=== PATIENT | female | born 1985 | race Caucasian/White ===

== ENCOUNTER → 2017-05-09 | Outpatient (CLI) | payer BC ==
--- NOTE | 2017-05-09 15:28 | DIAGNOSTIC IMAGING REPORT ---
PELVIS 1 OR 2 VIEW ROUTINE CLINICAL HISTORY: 31 years-old Female presenting with benign hypermobility syndrome, patellofemoral disorder, knee pain, polyarthralgia. TECHNIQUE: Single frontal view of the pelvis was obtained. COMPARISON: None. FINDINGS: Hip and sacroiliac joints congruent. No significant degenerative change. No diastases of the pubic symphysis. No acute fracture or malalignment. Nonobstructive bowel gas pattern. IMPRESSION: Normal pelvic radiograph. Electronically signed by: Lucho Ferris M.D. 05/09/2017 3:27 PM Dictated Date/Time: 05/09/2017 3:26 PM
--- NOTE | 2017-05-09 15:30 | DIAGNOSTIC IMAGING REPORT ---
LEFT HAND MIN 3 VIEWS ROUTINE CLINICAL HISTORY: 31 years-old Female presenting with benign hypermobility syndrome, patellofemoral disorder, knee pain, polyarthralgia. TECHNIQUE: Frontal, oblique, and lateral views of the left hand were obtained. COMPARISON: None. FINDINGS: Radiocarpal and intercarpal articulations congruent. No acute fracture or malalignment. No radiopaque foreign body. No significant degenerative change. No significant soft tissue swelling. IMPRESSION: No acute osseous injury of the right hand. Electronically signed by: Lucho Ferris M.D. 05/09/2017 3:28 PM Dictated Date/Time: 05/09/2017 3:27 PM
--- NOTE | 2017-05-09 15:34 | DIAGNOSTIC IMAGING REPORT ---
RIGHT KNEE 3 VIEWS CLINICAL HISTORY: Polyarthralgia. Benign hypermobility syndrome. COMPARISON: None FINDINGS: Alignment of the right knee is anatomic. There is no fracture or suspicious lesion. Joint spaces are preserved. No erosions are identified. There is no joint effusion. IMPRESSION: Unremarkable right knee radiographs. Electronically signed by: Valentino Shipley M.D. 05/09/2017 3:32 PM Dictated Date/Time: 05/09/2017 3:31 PM
--- NOTE | 2017-05-09 15:35 | DIAGNOSTIC IMAGING REPORT ---
RIGHT HAND MIN 3 VIEWS ROUTINE CLINICAL HISTORY: Polyarthralgia. Benign hypermobility syndrome. COMPARISON: None FINDINGS: Alignment of the right hand is anatomic. There is no fracture or osseous lesion. Joint spaces are preserved. No erosions are identified. Carpal bones are intact. IMPRESSION: Unremarkable right hand radiographs. No radiographic evidence of an erosive/inflammatory arthropathy. Electronically signed by: Valentino Shipley M.D. 05/09/2017 3:34 PM Dictated Date/Time: 05/09/2017 3:33 PM
[2017-05-09 17:03] LABS: RHEUMATOID FACTOR < 10.0 U/mL (0-15); TOTAL IRON BINDING CAPACITY 301 mcg/dl (250-450)
== END | disposition home or self-care (01) ==
LOC: C.RAD1850 14:50 → MERGE 14:50
PROVIDERS: ATTEND Internal Medicine Rheumatology
DX: M25.50 Pain in unspecified joint (principal); M22.2X9 Patellofemoral disorders, unspecified knee; M35.7 Hypermobility syndrome